=== PATIENT | male | born 1990 | race Caucasian/White ===

== ENCOUNTER → 2017-08-30 | Outpatient (REF) | payer BC ==
[~2017-08-30] MED LIST: DUL30 PO; PREG300C14 PO; TRAZ-133 PO
[2017-08-30 16:49] LABS: PLATELET COUNT, AUTOMATED 249 K/uL (150-450)
== END ==
PROVIDERS: ATTEND Physician Assistant Medical
DX: R10.9 Unspecified abdominal pain (principal)
CPT/HCPCS: 82040; 82247; 82310; 82374; 82435; 82565; 82947; 83690; 84075; 84132; 84155; 84295; 84450; 84460; 84520; 85025

== ENCOUNTER 2018-08-04 14:16 | Emergency (ER) | payer BC ==
[2018-08-04 15:01] LABS: PLATELET COUNT, AUTOMATED 229 K/uL (150-450)
[2018-08-04] MEDS ORDERED: KETOROLAC 15 MG/ML VIAL IVP ONE (15:30)
[2018-08-04] MEDS ORDERED: ONDANSETRON 4 MG/2 ML VIAL IVP ONE (15:30)
[2018-08-04] MEDS ORDERED: IOPAMIDOL 61% 50 ML INFUS BTL 50 ML ONE (15:35)
[2018-08-04] MEDS ORDERED: IOPAMIDOL 76% 50 ML INFUS BTL 100 ML ONE (15:35)
--- NOTE | 2018-08-04 16:00 | ER Report ---
History and Physical Time Seen By MD: 14:16 Hx. of Stated Complaint: abd pain HPI/ROS CHIEF COMPLAINT: Abdominal pain HISTORY OF PRESENT ILLNESS: Patient is a 27 her old male who presents the ED with complaint of abdominal pain for the past week. He states that this has been intermittent and usually right-sided. He has been having increased diarrhea this week. He did have an episode with blood in his stool a few days ago. He has noted some mild intermittent dysuria but nothing recently. He denies any hematuria. He states that he does have some chronic back pain and has noted some right-sided back pain. He denies any fever. He has not had any previous abdominal surgeries. He denies any nausea or vomiting. REVIEW OF SYSTEMS: Constitutional: No fever, no chills. Eyes: No discharge. ENT: No sore throat. Cardiovascular: No chest pain, no palpitations. Respiratory: No cough, no shortness of breath. Gastrointestinal: See history of present illness. Genitourinary: See history of present illness. Musculoskeletal: History of present illness. Skin: No rashes. Neurological: No headache. Allergies: Coded Allergies: Sulfa (Sulfonamide Antibiotics) (Verified Allergy, Intermediate, HIVES, 08/04/18) Home Meds Discontinued Reported Medications Pregabalin (LYRICA) 300 Mg Capsule, 400 MG PO DAILY, CAPSULE 04/20/14 Duloxetine Hcl (Cymbalta) 30 Mg Capcr, 90 MG PO QAM, #30 1 Refill 04/27/10 Reviewed Nurses Notes: Yes Old Medical Records Reviewed: Yes Hx Smoking: No Smoking Status: Never Smoker Hx Substance Use Disorder: No Hx Alcohol Use: No Constitutional Vital Sign - Last 24 Hours 08/04/18 08/04/18 08/04/18 08/04/18 14:16 14:25 14:27 14:30 Temp 97.9 Pulse 79 94 Resp 16 B/P (MAP) 133/75 (94) 133/75 123/71 (88) Pulse Ox 94 95 O2 Delivery Room Air 08/04/18 08/04/18 08/04/18 08/04/18 14:46 15:00 15:16 16:00 Pulse 79 78 B/P (MAP) 126/78 (94) 119/70 (86) Pulse Ox 95 92 Physical Exam General Appearance: The patient is alert, has no immediate need for airway protection and no signs of toxicity. Patient appears to be in some mild distress. Eyes: Pupils equal and round no pallor or injection. ENT, Mouth: Mucous membranes are moist. Respiratory: There are no retractions, lungs are clear to auscultation. Cardiovascular: Regular rate and rhythm. Gastrointestinal: There is right upper quadrant and right lower quadrant tenderness with palpation. There is some epigastric tenderness with palpation as well. No rebound or guarding is present. He does have some mild right CVA tenderness with percussion. Skin: Warm and dry, no rashes. Musculoskeletal: Neck is supple non tender. Extremities are nontender, nonswollen and have full range of motion. DIFFERENTIAL DIAGNOSIS: After history and physical exam differential diagnosis was considered for abdominal pain including but not limited to appendicitis, cholecystitis, gastritis and urinary tract infection. Medical Decision Making Data Points Result Diagram: 08/04/18 1456 08/04/18 1456 Laboratory Hematology Test 08/04/18 14:25 08/04/18 14:56 Urine Color Straw Urine Clarity Clear Urine pH 6.0 pH (4.8-9.5) Urine Specific [place] 1.009 Urine Protein Negative mg/dL (NEGATIVE) Urine Glucose (UA) Negative mg/dL (NEGATIVE) Urine Ketones Negative mg/dL (NEGATIVE) Urine Blood Negative (NEGATIVE) Urine Nitrite Negative (NEGATIVE) Urine Bilirubin Negative (NEGATIVE) Urine Urobilinogen Negative mg/dL (0.2-1.9) Urine Leukocyte Esterase Negative (NEGATIVE) Urine RBC <1 /HPF (0-2/HPF) Urine WBC <1 /HPF (0-5/HPF) Urine Squamous Epithelial Cells None /LPF (</=FEW) Urine Bacteria Negative /HPF (NONE-FEW) Urine Mucus None /HPF (NONE-FEW) Red Blood Count 5.43 M/uL (4.00-5.60) Mean Corpuscular Volume 85.9 fL (80.0-96.0) Mean Corpuscular Hemoglobin 29.3 pg (26.0-33.0) Mean Corpuscular Hemoglobin Concent 34.1 g/dL (32.0-36.0) Red Cell Distribution Width 12.3 % (11.5-14.5) Mean Platelet Volume 8.2 fL (7.2-11.1) Neutrophils (%) (Auto) 60.8 % (39.4-72.5) Lymphocytes (%) (Auto) 30.3 % (17.6-49.6) Monocytes (%) (Auto) 8.0 % (4.1-12.4) Eosinophils (%) (Auto) 0.1 % (0.4-6.7) Basophils (%) (Auto) 0.8 % (0.3-1.4) Nucleated RBC Relative Count (auto) 0.0 /100WBC Neutrophils # (Auto) 3.3 K/uL (2.0-7.4) Lymphocytes # (Auto) 1.6 K/uL (1.3-3.6) Monocytes # (Auto) 0.4 K/uL (0.3-1.0) Eosinophils # (Auto) 0.0 K/uL (0.0-0.5) Basophils # (Auto) 0.0 K/uL (0.0-0.1) Nucleated RBC Absolute Count (auto) 0.00 K/uL Sodium Level 141 mmol/L (137-145) Potassium Level 3.9 mmol/L (3.5-5.0) Chloride Level 107 mmol/L (98-107) Carbon Dioxide Level 25 mmol/L (22-30) Blood Urea Nitrogen 10 mg/dl (9-21) Creatinine 0.70 mg/dl (0.66-1.25) Glomerular Filtration Rate Calc > 60.0 Random Glucose 94 mg/dl (75-110) Calcium Level 9.4 mg/dl (8.4-10.2) Total Bilirubin 0.5 mg/dl (0.2-1.3) Aspartate Amino Transf (AST/SGOT) 33 U/L (0-35) Alanine Aminotransferase (ALT/SGPT) 49 U/L (0-56) Alkaline Phosphatase 78 U/L (0-126) Total Protein 7.4 g/dl (6.3-8.2) Albumin 4.3 g/dl (3.5-5.0) Lipase 42 U/L (23-300) Chemistry Test 08/04/18 14:25 08/04/18 14:56 Urine Color Straw Urine Clarity Clear Urine pH 6.0 pH (4.8-9.5) Urine Specific [place] 1.009 Urine Protein Negative mg/dL (NEGATIVE) Urine Glucose (UA) Negative mg/dL (NEGATIVE) Urine Ketones Negative mg/dL (NEGATIVE) Urine Blood Negative (NEGATIVE) Urine Nitrite Negative (NEGATIVE) Urine Bilirubin Negative (NEGATIVE) Urine Urobilinogen Negative mg/dL (0.2-1.9) Urine Leukocyte Esterase Negative (NEGATIVE) Urine RBC <1 /HPF (0-2/HPF) Urine WBC <1 /HPF (0-5/HPF) Urine Squamous Epithelial Cells None /LPF (</=FEW) Urine Bacteria Negative /HPF (NONE-FEW) Urine Mucus None /HPF (NONE-FEW) White Blood Count 5.4 k/uL (4.5-11.0) Red Blood Count 5.43 M/uL (4.00-5.60) Hemoglobin 15.9 g/dL (14.0-18.0) Hematocrit 46.7 % (42.0-52.0) Mean Corpuscular Volume 85.9 fL (80.0-96.0) Mean Corpuscular Hemoglobin 29.3 pg (26.0-33.0) Mean Corpuscular Hemoglobin Concent 34.1 g/dL (32.0-36.0) Red Cell Distribution Width 12.3 % (11.5-14.5) Platelet Count 229 K/uL (150-450) Mean Platelet Volume 8.2 fL (7.2-11.1) Neutrophils (%) (Auto) 60.8 % (39.4-72.5) Lymphocytes (%) (Auto) 30.3 % (17.6-49.6) Monocytes (%) (Auto) 8.0 % (4.1-12.4) Eosinophils (%) (Auto) 0.1 % (0.4-6.7) Basophils (%) (Auto) 0.8 % (0.3-1.4) Nucleated RBC Relative Count (auto) 0.0 /100WBC Neutrophils # (Auto) 3.3 K/uL (2.0-7.4) Lymphocytes # (Auto) 1.6 K/uL (1.3-3.6) Monocytes # (Auto) 0.4 K/uL (0.3-1.0) Eosinophils # (Auto) 0.0 K/uL (0.0-0.5) Basophils # (Auto) 0.0 K/uL (0.0-0.1) Nucleated RBC Absolute Count (auto) 0.00 K/uL Glomerular Filtration Rate Calc > 60.0 Calcium Level 9.4 mg/dl (8.4-10.2) Total Bilirubin 0.5 mg/dl (0.2-1.3) Aspartate Amino Transf (AST/SGOT) 33 U/L (0-35) Alanine Aminotransferase (ALT/SGPT) 49 U/L (0-56) Alkaline Phosphatase 78 U/L (0-126) Total Protein 7.4 g/dl (6.3-8.2) Albumin 4.3 g/dl (3.5-5.0) Lipase 42 U/L (23-300) Urinalysis Test 08/04/18 14:25 Urine Color Straw Urine Clarity Clear Urine pH 6.0 pH (4.8-9.5) Urine Specific [place] 1.009 Urine Protein Negative mg/dL (NEGATIVE) Urine Glucose (UA) Negative mg/dL (NEGATIVE) Urine Ketones Negative mg/dL (NEGATIVE) Urine Blood Negative (NEGATIVE) Urine Nitrite Negative (NEGATIVE) Urine Bilirubin Negative (NEGATIVE) Urine Urobilinogen Negative mg/dL (0.2-1.9) Urine Leukocyte Esterase Negative (NEGATIVE) Urine RBC <1 /HPF (0-2/HPF) Urine WBC <1 /HPF (0-5/HPF) Urine Squamous Epithelial Cells None /LPF (</=FEW) Urine Bacteria Negative /HPF (NONE-FEW) Urine Mucus None /HPF (NONE-FEW) EKG/Imaging Imaging Abd/Pelvis CT: IMPRESSION: 1. No CT evidence of acute intra-abdominal pathology. No specific source of abdominal pain is identified. 2. Hepatic steatosis. 3. Normal appendix. Report Dictated By: Phillip Shaver MD at 08/04/2018 4:05 PM Report E-Signed By: Phillip Shaver MD at 08/04/2018 4:08 PM ED Course/Re-evaluation ED Course Patient given 15 mg IV ketorolac and 4 mg IV Zofran. 08/04/2018 4:49:26 pm - discussed all labs and imaging with patient. He was given 20 mg IV Pepcid with some relief. All his labs are essentially normal and imaging is normal as well except for some hepatic steatosis. Will prescribe him some omeprazole. Advised to follow-up with primary care provider in 2-3 days. Decision to Disposition Date: Aug 04, 2018 Decision to Disposition Time: 16:50 Depart Departure Latest Vital Signs Vital Signs Date Time Temp Pulse Resp B/P (MAP) Pulse Ox O2 Delivery O2 Flow Rate FiO2 08/04/18 16:00 119/70 (86) 08/04/18 15:16 78 92 08/04/18 14:27 97.9 16 Room Air Impression: Primary Impression: Abdominal pain Condition: Improved Disposition: HOME OR SELF-CARE New Scripts Omeprazole (OMEPRAZOLE) 20 Mg Tablet. 20 MG PO QDAY, #14 TAB Prov: ROLY DONNELLY PA-C 08/04/18 Patient Instructions: Abdominal Pain (ED) Additional Instructions: Stay well-hydrated. Follow-up through primary care provider in 2-3 days. If having any worsening or concerning symptoms may return to the emergency department. Problem Qualifiers Primary Impression: Abdominal pain Abdominal location: upper abdomen, unspecified Qualified Codes: R10.10 - Upper abdominal pain, unspecified ROLY DONNELLY PA-C Aug 04, 2018 16:00
--- NOTE | 2018-08-04 16:13 | RADIOLOGY IMAGING REPORT ---
FACILITY[place] [facility] [place] NAME: Balbir Quintero : 1990 MR: [id number] V: [id number] EXAM DATE: ORDERING PHYSICIAN: ROLY DONNELLY TECHNOLOGIST: Location: [facility] Patient: Balbir Quintero : 1990 Visit/Account:[id number] Date of Sevice: 08/04/2018 EXAMINATION: CT abdomen and pelvis with IV contrast HISTORY: Right upper quadrant and right lower quadrant pain. Right flank pain. Blood in stool. TECHNIQUE: Axial CT images of the abdomen and pelvis were obtained with IV contrast, with coronal a nd sagittal 2D reconstructed images. One of the following dose optimization techniques was utilized in the performance of this exam: Autom ated exposure control; adjustment of the mA and/or kV according to the patient's size; or use of an i terative reconstruction technique. Specific details can be referenced in the facility's radiology C T exam operational policy. Contrast: 75 mL of IV [id number]. COMPARISON: None. FINDINGS: Liver: Fatty infiltration of the liver. Gallbladder and bile ducts: Negative. Spleen: Negative. Pancreas: Negative. Adrenal glands: Negative. Kidneys: Negative. No hydronephrosis or urinary calculi. Bowel and peritoneum: The small bowel and colon are normal in caliber, without evidence of obstructi on or any focal inflammatory process. Normal appendix in the right lower quadrant. No free fluid or free intraperitoneal air. Pelvic structures: Negative. Lymph node assessment: Negative. Vessels: Negative. Musculoskeletal: Negative. Body wall: Negative. Lung bases: Negative. IMPRESSION: 1. No CT evidence of acute intra-abdominal pathology. No specific source of abdominal pain is ident ified. 2. Hepatic steatosis. 3. Normal appendix. Report Dictated By: Phillip Shaver MD at 08/04/2018 4:05 PM Report E-Signed By: Phillip Shaver MD at 08/04/2018 4:08 PM [id number]
[2018-08-04] MEDS ORDERED: FAMOTIDINE(*) 20MG/50ML PREMIX 50 ML IVPB ONE (16:20)
[2018-08-04 16:30] VITALS: BP 110/79
[2018-08-04] MEDS ORDERED: OMEP-137 PO (16:52)
== END 2018-08-04 17:02 | disposition home or self-care (01) ==
LOC: ER 14:42
DX: R10.31 Right lower quadrant pain (principal); R10.10 Upper abdominal pain, unspecified; K76.0 Fatty (change of) liver, not elsewhere classified
CPT/HCPCS: 74177; 81001; 83690; 85025; 96365; 96375; 99284; J1885; J2405; J3490; Q9967; 82040; 82247; 82310; 82374; 82435; 82565; 82947; 84075; 84132; 84155; 84295; 84450; 84460; 84520